=== PATIENT | male | born 1975 | race Caucasian/White ===

== ENCOUNTER 2017-07-24 21:15 | Emergency (ER) | payer MEDICAID ==
[2017-07-24 21:52] LABS: BASOPHILS 0.3 % (0-2); EOSINOPHILS 2.7 % (0-7); HEMATOCRIT 34.7 % (42.0-54.0); HEMOGLOBIN 10.9 g/dL (13.5-17.5); IMMATURE GRANULOCYTES 0.3 % (0-5); LYMPHOCYTES 15.4 % (15-50); MCH 27.9 pg (26.0-34.0); MCHC 31.4 g/dL (31.0-37.0); MCV 88.7 fL (80.0-100.0); MEAN PLATELET VOLUME 9.1 fL (7.4-10.4); MONOCYTES 6.1 % (2-11); NEUTROPHILS 75.2 % (40-80); PLATELET COUNT 324 10x3/uL (130-400); RBC 3.91 10x6/uL (4.20-6.10); RDW 14.5 % (11.5-14.5); WBC 12.3 10x3/uL (4.8-10.8)
[2017-07-24 22:04] LABS: ALKALINE PHOSPHATASE 105 U/L (46-116); ALT (SGPT) 17 U/L (10-68); BILIRUBIN - TOTAL 0.43 mg/dL (0.2-1.3); CALC OSMOLALITY 276 mosm/kg (275-300); CALCIUM 8.7 mg/dL (8.5-10.1); CARBON DIOXIDE 31.8 mmol/L (21.0-32.0); CHLORIDE - SERUM 103 mmol/L (98-107); CREATININE - SERUM 0.9 mg/dL (0.6-1.3); GLUCOSE 79 mg/dL (74-106); POTASSIUM - SERUM 3.5 mmol/L (3.5-5.1); PROTEIN - SERUM 7.1 g/dL (6.4-8.2); SODIUM 139 mmol/L (136-145); UREA NITROGEN 12 mg/dL (7-18); eGFR NON AFRICAN AMERICAN > 90 mL/min (90-120)
[2017-07-24 22:15] LABS: AMYLASE - SERUM 47 U/L (25-115); CREATINE KINASE 116 UL (21-232); LIPASE 146 U/L (73-393); PRO BNP 2528 pg/mL (0-125); TROPONIN-I 0.023 ng/mL (0.000-0.060)
[2017-07-24 22:44] LABS: APPEARANCE CLEAR (CLEAR); BILIRUBIN NEGATIVE (NEGATIVE); COLOR YELLOW (YELLOW); GLUCOSE NEGATIVE (NEGATIVE); KETONE NEGATIVE (NEGATIVE); NITRITE NEGATIVE (NEGATIVE); PROTEIN NEGATIVE (NEGATIVE); UROBILINOGEN NORMAL (NORMAL)
[2017-07-24 22:50] LABS: UDS - AMPHET POSITIVE QUAL (NEGATIVE); UDS - BARB NEGATIVE QUAL (NEGATIVE); UDS - BENZO POSITIVE QUAL (NEGATIVE); UDS - COCAINE NEGATIVE QUAL (NEGATIVE); UDS - OPIATE NEGATIVE QUAL (NEGATIVE); UDS - PCP NEGATIVE QUAL (NEGATIVE); UDS - THC POSITIVE QUAL (NEGATIVE)
== END 2017-07-24 23:21 | disposition home or self-care (01) ==
LOC: D.ER 21:15
PROVIDERS: Family Medicine
DX: J20.9 Acute bronchitis, unspecified (principal); I50.9 Heart failure, unspecified; I10 Essential (primary) hypertension; J44.9 Chronic obstructive pulmonary disease, unspecified; F17.200 Nicotine dependence, unspecified, uncomplicated

== ENCOUNTER 2017-07-26 02:56 | Emergency (ER) | payer MEDICAID ==
[2017-07-26 03:36] LABS: BASOPHILS 0.2 % (0-2); EOSINOPHILS 2.3 % (0-7); HEMATOCRIT 33.9 % (42.0-54.0); HEMOGLOBIN 10.7 g/dL (13.5-17.5); IMMATURE GRANULOCYTES 0.4 % (0-5); LYMPHOCYTES 16.4 % (15-50); MCH 28.1 pg (26.0-34.0); MCHC 31.6 g/dL (31.0-37.0); MEAN PLATELET VOLUME 9.2 fL (7.4-10.4); MONOCYTES 7.1 % (2-11); NEUTROPHILS 73.6 % (40-80); PLATELET COUNT 277 10x3/uL (130-400); RBC 3.81 10x6/uL (4.20-6.10); RDW 14.5 % (11.5-14.5); WBC 9.3 10x3/uL (4.8-10.8)
[2017-07-26 03:53] LABS: ALBUMIN 2.6 g/dL (3.4-5.0); ALKALINE PHOSPHATASE 94 U/L (46-116); ALT (SGPT) 16 U/L (10-68); BILIRUBIN - TOTAL 0.63 mg/dL (0.2-1.3); CALC OSMOLALITY 279 mosm/kg (275-300); CALCIUM 8.2 mg/dL (8.5-10.1); CARBON DIOXIDE 29.8 mmol/L (21.0-32.0); CHLORIDE - SERUM 102 mmol/L (98-107); CREATININE - SERUM 0.9 mg/dL (0.6-1.3); GLUCOSE 109 mg/dL (74-106); POTASSIUM - SERUM 3.4 mmol/L (3.5-5.1); PROTEIN - SERUM 6.6 g/dL (6.4-8.2); SODIUM 140 mmol/L (136-145); UREA NITROGEN 12 mg/dL (7-18); eGFR NON AFRICAN AMERICAN > 90 mL/min (90-120)
[2017-07-26 04:02] LABS: CKMB 1.8 U/L (0.0-3.6); CREATINE KINASE 150 UL (21-232); PRO BNP 2279 pg/mL (0-125)
[2017-07-26 04:08] LABS: TROPONIN-I 0.016 ng/mL (0.000-0.060)
== END 2017-07-26 04:30 | disposition home or self-care (01) ==
LOC: D.ER 02:56
PROVIDERS: Family Medicine
DX: I50.9 Heart failure, unspecified (principal); J44.1 Chronic obstructive pulmonary disease with (acute) exacerbation; F15.10 Other stimulant abuse, uncomplicated; F12.10 Cannabis abuse, uncomplicated; F13.10 Sedative, hypnotic or anxiolytic abuse, uncomplicated; F17.200 Nicotine dependence, unspecified, uncomplicated; I10 Essential (primary) hypertension